=== PATIENT | female | born 1960 | race Caucasian/White ===

== ENCOUNTER 2018-05-07 07:47 | Outpatient (CLI) | payer BC ==
--- NOTE | 2018-05-07 08:35 | ULT ---
THYROID ULTRASOUND: DATE: 05/07/2018. COMPARISON: 05/16/2016. HISTORY: A 58-year-old female who reports a history of fine needle aspiration of thyroid nodule in the past. TECHNIQUE: Multiplanar, lu scale, sonographic imaging of the thyroid gland obtained. FINDINGS: Thyroid isthmus measures 1-2 mm in AP dimension. The right lobe measures 4.2 x 1.7 x 1.5 cm and the left lobe measures 4.5 x 2.1 x 1.8 cm. There is a 2-3 mm solid nodule in the inferomedial aspect of the right lobe of the thyroid gland. There is a relatively homogeneous oval solid isoechoic nodule in the mid portion of the right lobe me asuring 1.3 x 1.1 x 1.6 cm. When compared to the 05/16/2016 examination, this lesion is unchanged as it previously measured 1.2 x 1.4 x 1.5 cm. There is a complex heterogeneous hypoechoic solid nodule within the mid portion of the left lobe svetlana uring approximately 1.9 x 1.8 x 2.8 cm. This nodule is also grossly unchanged as it measured approxi mately 3.0 x 2.0 x 1.7 cm on the prior exam. No new thyroid nodules are seen. IMPRESSION: Bilateral solid nodules are noted within the thyroid gland, unchanged when compared to the 2016 exami [facility], [place]. POS: [facility]
== END 2018-05-07 07:48 | disposition home or self-care (01) ==
LOC: BICULT 07:47
PROVIDERS: ATTEND Internal Medicine Endocrinology, Diabetes & Metabolism
DX: E04.9 Nontoxic goiter, unspecified (principal); E04.2 Nontoxic multinodular goiter
CPT/HCPCS: 76536

== ENCOUNTER 2022-08-11 09:29 | Outpatient (CLI) | payer BC ==
[2022-08-11 09:56] LABS: #Eosinphils 0.1 10x3/uL (0.0-0.5); #Monocytes 0.3 10x3/uL (0.0-1.1); #Neutrophils 1.8 10x3/uL (1.5-8.4); %Basophils 0.9 % (0.0-2.0); %Eosinophils 2.6 % (0.0-6.0); %Monocytes 8.7 % (0.0-10.0); %Neutrophils 50.5 % (40.0-75.0); Hemoglobin 13.8 g/dL (12.0-15.5); Mean Corpuscular HGB CONC 34.9 g/dL (32.0-36.0); Mean Corpuscular Hemoglobin 31.9 pg (27.0-33.0); Mean Corpuscular Volume 91.4 fl (81.6-98.3); Mean Platelet Volume 8.3 fl (7.4-10.4); Platelet Count 232 10x3/uL (150-450); RBC Distribution Width 11.9 % (11.5-14.5); Red Blood Cell (RBC) Count 4.32 10x6/uL (3.90-5.03); White Blood Cell (WBC) Count 3.5 10x3/uL (3.5-10.5)
[2022-08-11 10:18] LABS: Anion Gap 13 mmol/L (10-20); BUN (Urea Nitrogen) 14 mg/dL (9.8-20.1); Calc. Creatinine Clearance 0 mL/min (70-130); Calcium 9.9 mg/dL (7.8-10.44); Carbon Dioxide 28 mmol/L (23-31); Chloride 105 mmol/L (98-107); Estimated GFR 87; Glucose 91 mg/dL (80-115); Potassium 4.2 mmol/L (3.5-5.1); Sodium 142 mmol/L (136-145)
== END 2022-08-11 09:30 | disposition home or self-care (01) ==
LOC: LABBT 09:29
PROVIDERS: ATTEND Surgery
DX: Z01.812 Encounter for preprocedural laboratory examination (principal); K64.9 Unspecified hemorrhoids
CPT/HCPCS: 80048; 85025

== ENCOUNTER 2022-08-14 05:59 | Day surgery (SDC) | payer BC ==
[2022-08-12 15:31] VITALS: BMI 25.5
[2022-08-14] MEDS ORDERED: Lidocaine 1% MPF 2 ML VIAL ONE (06:25)
[2022-08-14] MEDS ORDERED: CEFAZOLIN 2 GM VIAL ONE (06:25)
[2022-08-14] MEDS ORDERED: Sodium Chloride 0.9% 100 ML ONE (06:26)
[2022-08-14] MEDS ORDERED: Lidocaine 2% 6 ML SYR ONE (06:33)
[2022-08-14] MEDS ORDERED: fentaNYL PF 100 MCG/2 ML SYRINGE ONE (06:49)
[2022-08-14] MEDS ORDERED: Dexmedetomidine 200 MCG/2 ML VIAL ONE (06:49)
[2022-08-14] MEDS ORDERED: SUGAMMADEX SODIUM 200 MG/2 ML VIAL ONE (06:49)
[2022-08-14] MEDS ORDERED: Lidocaine 1% PF 5 ML VIAL ONE (07:33)
[2022-08-14] MEDS ORDERED: Dexamethasone 20 MG/5 ML VIAL ONE (07:33)
[2022-08-14] MEDS ORDERED: Rocuronium Bromide 10 MG/ML (10ML VIAL) ONE (07:33)
[2022-08-14] MEDS ORDERED: NEOSTIGMINE 3 MG/3 ML SYR 3 MG/3 ML SYRINGE ONE (07:33)
[2022-08-14] MEDS ORDERED: PROPOFOL 200 MG/20 ML VIAL ONE (07:33)
[2022-08-14] MEDS ORDERED: Glycopyrrolate 0.2 MG/ML 5 ML SYRINGE ONE (07:33)
[2022-08-14] MEDS ORDERED: Ketorolac Tromethamine 30 MG/ML VIAL ONE (07:33)
[2022-08-14] MEDS ORDERED: Ondansetron PF 4 MG/2 ML Vial ONE (07:33)
[2022-08-14] MEDS ORDERED: Fentanyl 100 MCG/2 ML VIAL ONE ×2 (08:31→08:46)
[2022-08-14] MEDS ORDERED: HYDROmorphone 0.5 MG/0.5 ML SYRINGE ONE ×2 (08:59→09:06)
[2022-08-14] MEDS ORDERED: HYDROcodone/Acetaminophen 5/325 mg Tablet ONE (09:59)
== END 2022-08-14 11:02 | disposition home or self-care (01) ==
LOC: SDC 05:59
PROVIDERS: ATTEND Surgery
PROC: 06BY3ZC Excision of Hemorrhoidal Plexus, Percutaneous Approach (ICD-10-PCS; principal; 2022-08-14)
DX: K64.8 Other hemorrhoids (principal); E03.9 Hypothyroidism, unspecified; Z79.890 Hormone replacement therapy; Z88.2 Allergy status to sulfonamides
CPT/HCPCS: 88304; J1100; J1170; J1885; J2405; J2704; J3010; J3490